=== PATIENT | female | born 1975 | race Caucasian/White ===

== ENCOUNTER 2018-09-28 08:00 | Inpatient (IN) | payer BC, OTHER ==
[2018-09-28 12:42] VITALS: BMI 38.2
[2018-09-28] MEDS ORDERED: CITRIC ACID/SODIUM CITRATE 30 ML UNIT-DOSE CUP PO ONE (13:15)
[2018-09-28] MEDS ORDERED: ELECTROLYTE-148 SOLN 1,000 ML IV SCH ×2 (13:15→14:15)
[2018-09-28] MEDS ORDERED: morphine SULFATE/PF 0.5 MG/ML (2cc Syringe - QUVA) ONE (14:03)
[2018-09-28] MEDS ORDERED: SUCCINYLCHOLINE CHLORIDE 200 MG/10 ML SYRINGE ONE (14:04)
[2018-09-28] MEDS ORDERED: PROPOFOL 20 ML ONE (14:04)
[2018-09-28] MEDS ORDERED: OXYTOCIN 20 UNITS in 0.9% NS 40 UNIT/2,000 ML INFUS.BAG IV ONE (14:09)
[2018-09-28] MEDS ORDERED: BENZOCAINE 20% 57 GM BOTTLE TP PRN (14:13)
[2018-09-28] MEDS ORDERED: IBUPROFEN 800 MG/8 ML IJ IVPB PRN (14:13)
[2018-09-28] MEDS ORDERED: METHYLERGONOVINE MALEATE 0.2 MG/1 ML AMP IM PRN (14:13)
[2018-09-28] MEDS ORDERED: WITCH HAZEL 50% (TUCKS) 40 PAD/JAR PAD TP PRN (14:13)
--- NOTE | 2018-09-28 14:24 | HP ---
Past Medical History - Primary Care Physician PCP:: David Watson - Admission Chief Complaint: 43yo P4 with prior C/S x 2 admitted with a at EGA 39w1d for repeat C/S and BTL. History of Present Illness: complicated by: AMA Morbid obesity Prior C/S x 2 Grand multiparity History Source: Patient, Medical Record Limitations to Obtaining History: No Limitations - Past Medical History ROLL PLUGGER: No: Alzheimer's, CVA, Dementia, Migraine, Multiple Sclerosis, Peripheral Neuropathy, Parkinson's, Seizure, Syncope, TIA, Vertigo, Other Cardiovascular: No: AFIB, Aneurysm, Aortic Insufficiency, Aortic Stenosis, CAD, CHF, Deep Vein Thrombosis, HTN, Hyperlipdemia, HI, Mitral Insufficiency, Mitral Stenosis, Murmur, Pulmonary Hypertension, Other Pulmonary: No: Asthma, Bronchitis, Cancer, COPD, O2 Dependent, Pneumonia, Previously Intubated, Pulmonary Embolus, Pulmonary Fibrosis, Sleep Apnea, Other Gastrointestinal: No: Ascites, Cancer, Constipation, Crohn's Disease, Diverticulitis, Diverticulosis, Esophageal Varices, Gastritis, GERD, GI Bleed, Hemorrhoids, Hiatal Hernia, Inflamatory Bowel Disease, Irritable Bowel Disease, Pancreatitis, Peptic Ulcer Disease, Ulcerative Colitis, Other Hepatobiliary: No: Cirrhosis, Cholelithiasis, Cholecystitis, Choledocholithiasis , Hepatitis A, Hepatitis B, Hepatitis C, Other Renal/: Yes: Other (Proteinuria) Reproductive: No: Ectopic , Endometriosis, Fibroids, PID, Polycystic Ovary Syndrome, Postmenopausal, Other ...: 8 ...Para: 4 ( x 2, C/S x 2) ...Term: 4 ...: 0 ...Spon : 3 ...Induced : 0 ...Multiple Gestation: 0 ...LMP: 12/30/17 ... Weeks Gestation by Dates: 39.1 ...EDC by Dates: 10/06/18 ...EDC by Sono: 10/04/18 Heme/Onc: No: Anemia, B12 Deficiency, Bleeding Disorder, Cancer, Current Chemotherapy, Current Radiation Therapy, Hemochromatosis, Hypercoaguable State, Myeloproliferative Synd, Sickle Cell Disease, Sickle Cell Trait, Thrombocytopenia, Other Infectious Disease: No: AIDS, C-Diff, Herpes Zoster, HIV, MRSA, STD's, Tuberculosis, VREF, Other Psych: No: Addictions, Anxiety, Bipolar, Depression, Panic, Psychosis, Schizophrenia, Other Musculoskeletal: No: Bursitis, Chronic low back pain, Hemiparesis, Hemiplegia, Osteoarthritis, Paraplegia, Other Rheumatology: No: Fibromyalgia, Gout, Lupus, Rheumatoid Arthritis, Sarcoidosis, Vasculitis, Other ENT: No: Allergic Rhinitis, Sinusitis, Other Endocrine: Yes: Other (Obesity) Dermatology: No: Basal Cell, Cellulitis, Eczema, Melanoma, Psoriasis, Squamous Cell, Other - Past Surgical History Past Surgical History: Yes: (x 2) Hx Myomectomy: No Hx Transabdominal Cerclage: No - Smoking History Smoking history: Former smoker Have you smoked in the past 12 months: No Aproximately how many cigarettes per day: 7 - Alcohol/Substance Use Hx Alcohol Use: No History of Substance Use: reports: None - Social History Usual Living Arrangement: Yes: With Spouse, With Child ADL: Independent History of Recent Travel: No Home Medications - Allergies Allergies/Adverse Reactions: Allergies Allergy/AdvReac Type Severity Reaction Status Date / Time No Known Drug Allergies Allergy Verified 09/28/18 12:22 - Home Medications Home Medications: Ambulatory Orders Vits96/Iron Fum/Folic [ Tablet] 1 each PO DAILY 09/28/18 Family Disease History - Family Disease History Family Disease History: CA: Sister (??ovarian), Other: Mother (HTN, COPD, Thyroid Dz.) Review of Systems - Review of Systems Constitutional: reports: No Symptoms Eyes: reports: No Symptoms HENT: reports: No Symptoms Neck: reports: No Symptoms Cardiovascular: reports: No Symptoms Respiratory: reports: No Symptoms Gastrointestinal: reports: No Symptoms Genitourinary: reports: No Symptoms Breasts: reports: No Symptoms Reported Musculoskeletal: reports: No Symptoms Integumentary: reports: No Symptoms Neurological: reports: No Symptoms Endocrine: reports: No Symptoms Hematology/Lymphatic: reports: No Symptoms Psychiatric: reports: No Symptoms Pain Intensity: 0 Physical Exam - Maternity Vital Signs: Vital Signs Temperature 98.8 F 09/28/18 12:40 Pulse Rate 99 H 09/28/18 12:40 Respiratory Rate 18 09/28/18 12:40 Blood Pressure 124/83 09/28/18 12:40 O2 Sat by Pulse Oximetry (%) Constitutional: Yes: Well Nourished, No Distress, Calm, Obese Eyes: Yes: WNL, Conjunctiva Clear HENT: Yes: WNL, Atraumatic, Normocephalic Neck: Yes: WNL, Supple, Trachea Midline Cardiovascular: Yes: WNL, Regular Rate and Rhythm Lungs: Clear to auscultation, Normal air movement Breast(s): Yes: WNL - Abdominal Exam/OB Fundal Height: 42 Number of Fetuses: Single Presentation: Vertex Contractions: No Intensity: Unaware Monitor Mode: External Heart Rate (range): 130 Heart Rate Location: Midline Category: I Accelerations: Non-Uniform Decelerations: None - Vaginal Exam/OB Vaginal Bleediing: No Speculum Exam: No Presentation: Vertex/Position - Physical Exam Musculoskeletal: Yes: WNL Extremities: Yes: WNL Edema: No Integumentary: Yes: WNL Deep Tendon Reflex Grade: Normal +2 ...Motor Strength: WNL Psychiatric: Yes: WNL, Alert, Oriented Hemorrhage Risk Assessment - Risk Factors Medium Risk Factors: Yes: Prior , uterine surgery,or multiple laparotomies, Greater than 4 previous births Risk Score: 2 Risk Level: High Risk Imaging - Results Ultrasound: Report Reviewed Assessment/Plan 43yo P4 with prior C/S x 2 admitted with a at EGA 39w1d for repeat C/ S and BTL. The decision was made to proceed with delivery by C/S. The pt requested sterilization. We discussed the risks and benefits of C/S at length, including but not limited to scarring, pain, bleeding, infection, injury to underlying organs and structures, need for additional surgery to repair/treat any problems or complications, complications/injuries, etc. The pt verbalized her understanding and requested to proceed with surgery. The pt is aware that all surgeries have risks and no guarantees can be provided. We discussed the risks and benefits of BTL vs salpingectomy. The pt prefers BTL if possible, not a salpingectomy. We discussed the possible risk reduction for ovarian ca in patients with FHx of ovarian cancer.
[2018-09-28] MEDS ORDERED: ePHEDrine SULFATE 50 MG/1 ML AMPULE ONE (14:25)
[2018-09-28] MEDS ORDERED: morphine SULFATE/PF 0.5 MG/ML (2cc Syringe - QUVA) EP ONE (14:42)
[2018-09-28] MEDS: OXYTOCIN 20 UNITS in 0.9% NS 20 UNIT/1,000 ML INFUS.BAG IV SCH (15:25)
[2018-09-28] MEDS ORDERED: ONDANSETRON 4 MG/2 ML VIAL IVPUSH PRN (15:42)
[2018-09-28] MEDS ORDERED: ACETAMINOPHEN 1000 MG/100 ML VIAL (NON FORMULARY) IVPB ONE (15:44)
[2018-09-28] MEDS ORDERED: KETOROLAC TROMETHAMINE 30 MG/1 ML VIAL ONE (15:50)
[2018-09-28] MEDS ORDERED: ACETAMINOPHEN INJECTION 100 ML IVPB ONE (15:50)
--- NOTE | 2018-09-28 16:48 | OP ---
Operative Note - Note: Operative Date: 09/28/18 Pre-Operative Diagnosis: at EGA 39w 1d with prior C/S x 2, AMA, morbid obesity, gestational proteinuria, sterilization Operation: Repeat LT C/S, Left tubal ligation, right partial salpigectomy/ fimbriactomy Findings: Normal uterus/tubes/ovaries, live baby boy in vtx presentation, no meconium in amniotic fluid, 9-9, Wt 9lb 2oz, left Fallopian tube free from adhesions, right Fallopian tube with multiple adhesion. Post-Operative Diagnosis: Same as Pre-op Surgeon: David Watson Ceo: Jim Gomez Anesthesiologist/PICTURE FRAME MAKER: Opal Burton MD Anesthesia: Spinal Specimens Removed: Placenta, fragments of left & right Fallopian tubes. Estimated Blood Loss (mls): 700 Drains & Tubes with Location: Tobar cath Drains, Volume Out (mls): 400 Blood Volume Replaced (mls): 0 Fluid Volume Replaced (mls): 2,000 Operative Report Dictated: Yes
[2018-09-29] MEDS: OXYTOCIN 20 UNITS in 0.9% NS 20 UNIT/1,000 ML INFUS.BAG IV SCH (04:12)
[2018-09-29] MEDS ORDERED: ACETAMINOPHEN 325 MG TABLET (FP) PO ONE (07:00)
--- NOTE | 2018-09-29 07:01 | PN ---
Post Progress Note - Subjective Subjective: Patient without acute complaints. Had nausea overnight, now tolerating clears. No voiding, peguero in place draining clear fluid No ambulation or flatus yet. Denies fevers or chills. Pain well controlled. Post Day: 1 Type of Delivery: Repeat C/S Vital Signs: Vital Signs Temperature 97.7 F 09/29/18 06:00 Pulse Rate 82 09/29/18 06:00 Respiratory Rate 20 09/29/18 06:00 Blood Pressure 106/66 09/29/18 06:00 O2 Sat by Pulse Oximetry (%) 98 09/28/18 17:25 Breast Exam: Yes: Soft Uterus: Yes: Fundus Firm, Fundus @ umbilicus, Fundus below umbilicus Incision: Yes: Dressing dry and intact Abdomen/GI: Yes: Abdomen soft, Abdominal Distention (mild soft), Tender (mild incisional), Tolerating PO Lochia: Yes: Rubra Lochia, amount: Moderate Extremities: Yes: Calves non-tender, Edema (+1) Activity: Ambulating Assessment/Plan 43 yo POD # 1 s/p R CD, afebrile, vital signs stable, doing well 1. Continue routine postoperative care. 2. Follow up AM CBC 3. Rh positive status, no rhogam indicated. 4. Encourage ambulation and incentive spirometer use 5. Continue oral pain medication 6. Peguero in place Will DC this afternoon. 7. Anticipate discharge home postoperative day #3 or #4
[2018-09-29 07:31] LABS: BASO % 0.6 % (0-2.0); EOS % 1.5 % (0-4.5); HEMATOCRIT 29.7 % (32.4-45.2); HEMOGLOBIN 10.4 GM/dL (10.7-15.3); LYMPH % 14.3 % (8-40); MCH 31.5 pg (25.7-33.7); MCHC 34.8 g/dl (32.0-36.0); MEAN CELL VOLUME 90.6 fl (80-96); MONO % 4.4 % (3.8-10.2); NEUT % 79.2 % (42.8-82.8); PLATELET COUNT 93 K/MM3 (134-434); RBC 3.28 M/mm3 (3.60-5.2); RDW 14.4 % (11.6-15.6); WHITE BLOOD COUNT 8.3 K/mm3 (4.0-10.0)
[2018-09-29] MEDS: PRENATAL VITAMINS W/ FOLIC ACID TABLET (FP) PO SCH (09:26)
[2018-09-29] MEDS ORDERED: OXYTOCIN 20 UNITS in 0.9% NS 20 UNIT/1,000 ML INFUS.BAG IV ONE (10:44)
[2018-09-29] MEDS: ENOXAPARIN NA (PORCINE) 40 MG/0.4 ML DISP.SYRIN SQ SCH (10:47)
--- NOTE | 2018-09-29 11:36 | PN ---
Progress Note (short form) - Note Progress Note: Anesthesiology Post-op POD#1 s/p C/S under Spinal anesthesia. Pt. is sitting up in chair, nursing babay. She feels well and states that her nausea and dizziness are resolved from yesterday. No h/a, she is able to walk without difficulty. VSS. 43 y.o. woman with stable post-operative course. Continue management as per primary team.
[2018-09-29] MEDS ORDERED: BISACODYL 10 MG SUPP.RECT RC PRN (14:13)
[2018-09-29] MEDS: IBUPROFEN 600 MG TABLET (FP) PO PRN (16:45)
[2018-09-29] MEDS ORDERED: oxyCODONE HCL 5 MG TABLET PO PRN (22:28)
[2018-09-30] MEDS: IBUPROFEN 600 MG TABLET (FP) PO PRN ×3 (01:29→22:00)
[2018-09-30] MEDS: SIMETHICONE 80 MG TAB.CHEW (FP) PO PRN ×2 (01:29→16:09)
--- NOTE | 2018-09-30 06:06 | PN ---
Progress Note (short form) - Note Progress Note: pod 2 s/p c/s , doing well, ambulating , passing gas , tolerate diet CBC, BMP 09/29/18 07:03 Last Vital Signs Temp Pulse Resp BP Pulse Ox 98.7 F 95 H 18 128/78 98 09/29/18 22:00 09/29/18 22:00 09/29/18 22:00 09/29/18 22:00 09/28/18 17:25 abdomen soft, no distension, no cva incision dry, clean no calf tenderness no excess vaginal bleeding plan ambulate , cbc in am
[2018-09-30] MEDS: ENOXAPARIN NA (PORCINE) 40 MG/0.4 ML DISP.SYRIN SQ SCH (09:19)
[2018-09-30] MEDS: PRENATAL VITAMINS W/ FOLIC ACID TABLET (FP) PO SCH (09:19)
[2018-10-01 07:45] LABS: BASO % 0.5 % (0-2.0); EOS % 1.7 % (0-4.5); HEMATOCRIT 28.2 % (32.4-45.2); HEMOGLOBIN 9.7 GM/dL (10.7-15.3); LYMPH % 17.9 % (8-40); MCH 31.3 pg (25.7-33.7); MCHC 34.6 g/dl (32.0-36.0); MEAN CELL VOLUME 90.6 fl (80-96); MEAN PLT VOLUME 9.8 fl (7.5-11.1); NEUT % 74.9 % (42.8-82.8); PLATELET COUNT 118 K/MM3 (134-434); RBC 3.11 M/mm3 (3.60-5.2); RDW 14.6 % (11.6-15.6); WHITE BLOOD COUNT 8.5 K/mm3 (4.0-10.0)
[2018-10-01] MEDS: IBUPROFEN 600 MG TABLET (FP) PO PRN (08:39)
[2018-10-01] MEDS: SIMETHICONE 80 MG TAB.CHEW (FP) PO PRN (08:39)
--- NOTE | 2018-10-01 10:06 | DS ---
Physical Exam-ENAMEL BUFFER Vital Signs: Vital Signs Temperature 98.2 F 09/30/18 22:00 Pulse Rate 86 09/30/18 22:00 Respiratory Rate 18 09/30/18 22:00 Blood Pressure 126/81 09/30/18 22:00 O2 Sat by Pulse Oximetry (%) 98 09/28/18 17:25 Constitutional: Yes: Well Nourished, No Distress, Calm Eyes: Yes: WNL, Conjunctiva Clear, EOM Intact HENT: Yes: WNL, Atraumatic, Normocephalic Neck: Yes: WNL, Supple, Trachea Midline Cardiovascular: Yes: WNL, Regular Rate and Rhythm Respiratory: Yes: WNL, Regular, CTA Bilaterally Gastrointestinal: Yes: WNL ...Rectal Exam: Yes: WNL Renal/: Yes: WNL ....Post : Yes: Uterus firm, Uterus non-tender, Slight lochia rubra Breast(s): Yes: WNL Musculoskeletal: Yes: WNL Extremities: Yes: WNL Edema: Yes Edema: LLE: Trace, RLE: Trace Integumentary: Yes: WNL Wound/Incision: Yes: Clean/Dry, Well Approximated, Sutures Intact Neurological: Yes: WNL, Alert, Oriented ...Motor Strength: WNL Psychiatric: Yes: WNL, Alert, Oriented Labs: CBC, BMP 10/01/18 07:15 Delivery - Delivery Section: Repeat Type of Anesthesia: Spinal Episiotomy/Laceration: None EBL (cc): 700 Delivery, Single - Stages of Labor Date of Delivery: 09/28/18 Time of Delivery: 14:50 Time Placenta Delivered: 14:51 Placenta: Yes: Expressed - Condition of Infant Sales Clerk Food/Grey Washer Present: Yes Name: William Villarreal Infant Gender: Male Weight: 9 lb 2 oz Position: Left, OT Total Hours ROM (Hrs/Mins): 0/2 - 1 Minute Total Score: 9 5 Minutes Total Score: 9 - [place] Feeding Plan Initial Plan: Elected not to breastfeed exclusively throughout hospitalization Discharge Summary Reason For Visit: REPEAT Procedures: Principal: repeat LST c/s Condition: Good - Instructions Diet, Activity, Other Instructions: regular diet, follow up office 1 week, if fever, heavy vaginal bleeding, sever pain call md Referrals: David Watson MD [Staff Physician] - Disposition: HOME - Home Medications Comprehensive Discharge Medication List: Ambulatory Orders Vits96/Iron Fum/Folic [ Tablet] 1 each PO DAILY 09/28/18 Ibuprofen [Motrin -] 600 mg PO QID #28 tablet 10/01/18
[2018-10-01] MEDS: ENOXAPARIN NA (PORCINE) 40 MG/0.4 ML DISP.SYRIN SQ SCH (10:31)
[2018-10-01] MEDS: PRENATAL VITAMINS W/ FOLIC ACID TABLET (FP) PO SCH (10:33)
[2018-10-01 13:25] VITALS: BP 129/80; PULSE 90; TEMP 99.1
--- NOTE | 2018-10-05 17:05 | PATH ---
Surgical Pathology Report Patient Name: PAZ MONTIEL [facility]. Rec. #: [id number] /Age/Gender: 1975 (Age: 43) / F Account: [id number] Location: [facility] OBS/VP SITE Taken: 09/28/2018 Received: 09/29/2018 Reported: 10/05/2018 Physicians: David Watson M.D. Specimen(s) Received A: PLACENTA B: LEFT FALLOPIAN TUBE C: RIGHT FALLOPIAN TUBE Clinical History for repeat and BTL 05/31, 07/04, SPAB x3 Advanced maternal age, gestational proteinuria Final Diagnosis A. PLACENTA: THIRD TRIMESTER PLACENTA. TRIVASCULAR CORD. MEMBRANES WITH NO DIAGNOSTIC ABNORMALITIES. B. PORTION OF LEFT FALLOPIAN TUBE: COMPLETE CROSS SECTION OF THE FALLOPIAN TUBE LUMEN IDENTIFIED. C. PORTION OF RIGHT FALLOPIAN TUBE: COMPLETE CROSS SECTION OF THE FALLOPIAN TUBE LUMEN IDENTIFIED. Electronically Signed Dominique Macias M.D. Gross Description A. The specimen is received fresh labeled placenta and is a 510 gram, 17.0 x 15.0 x 4.0 cm. placenta with attached membranes and umbilical cord. The attached membranes are castellanos, translucent with focal opacities and insert marginally. The umbilical cord measures 36 cm. in length and averages 1.2 cm. in diameter. The cord inserts eccentrically, 3 cm. to the nearest margin. No true knots or strictures are identified. Cut surface of the umbilical cord reveals 3 vessels. The surface is vazquez blue with moderate fibrin deposition and appropriate caliber vessels. The maternal surface is red-brown with focal defects. Sectioning reveals red-brown, spongy parenchyma. No lesions are identified. Special Investigation Unit Investigator sections are submitted in three cassettes as follows: 1- membrane rolls and umbilical cord; 2-3- full thickness sections of placenta. B. Received in formalin labeled "portion of left fallopian tube," is a 0.6 cm in length portion of fallopian tube. No fimbria are present. The outer surface is castellanos-finley and smooth. Sectioning reveals unremarkable lumen. Special Investigation Unit Investigator sections are submitted in one cassette. C. Received in formalin labeled "portion of right fallopian tube," are 2 portions of fallopian tube measuring 1.5 and 2.0 cm in length. The longer portion is fimbriated. The outer surfaces are castellanos-finley and smooth. Sectioning reveals an unremarkable lumen. Special Investigation Unit Investigator sections are submitted in 2 cassettes as follows: 1-fimbria; 2-cross sections of fallopian tube. 10/04/2018 [facility]10/04/2018
--- NOTE | 2018-10-07 06:32 | OP ---
DATE OF OPERATION: 09/28/2018 PREOPERATIVE DIAGNOSES: at the estimated gestational age of 39 weeks and 1 day, previous section x2, advanced maternal age, gestational proteinuria, morbid obesity, sterilization. POSTOPERATIVE DIAGNOSES: at the estimated gestational age of 39 weeks and 1 day, previous section x2, advanced maternal age, gestational proteinuria, morbid obesity, sterilization. PROCEDURE: Repeat low transverse section, left tubal ligation, right fallopian tube partial salpingectomy and fimbriectomy. SURGEON: David Watson MD PHYSICIANS AND SURGEONS: Jim Gomez MD ANESTHESIOLOGIST: SUSY Gorman- ANESTHESIA: Spinal. INTRAVENOUS FLUIDS: 2000 mL. URINE OUTPUT: 400 mL. ESTIMATED BLOOD LOSS: 700 mL. PATHOLOGY: Placenta and fragments of left and right fallopian tubes. COMPLICATIONS: None. FINDINGS: Live baby boy in vertex presentation. No meconium in amniotic fluid. Apgars 9 and 9. Baby's weight 9 pounds and 2 ounces. Normal uterus, fallopian tubes and ovaries. The left fallopian tube was noted to be free from adhesions. The right fallopian tube had multiple dense adhesions. PROCEDURE: The patient was met preoperatively. Risks, benefits and alternatives of surgery were discussed at length. The risks of surgery were reviewed. The consent form was discussed. The patient verbalized her understanding and the consent form was signed. The patient then requested to proceed with the operation. The patient was brought to the OR with the IV running. She was placed on the surgical table in the sitting position. The spinal anesthesia was achieved without difficulty. The patient was then placed in a supine position with a leftward tilt. A Tobar catheter was inserted and left to drain to gravity. The patient was then prepped and draped in the usual sterile fashion. A timeout procedure was conducted as per standard protocol. The surgeons then proceeded with the operation. A Pfannenstiel skin incision was made along the prior scar. The incision was taken down to the level of fascia. The fascia was incised in the midline and the incision was extended bilaterally using Garner scissors. The fascia was dissected away from the rectus muscles superiorly and inferiorly. The rectus muscles were in the midline using sharp and blunt dissection. The peritoneum was identified and entered sharply. The peritoneal incision was then extended superiorly and inferiorly. The bladder peritoneum was dissected away from the lower uterine segment using sharp and blunt dissection. The bladder was reflected downwards using a [place] retractor. The uterus was incised transversely in the lower uterine segment. The uterine incision was extended bilaterally using bandage scissors. The amniotic sac was ruptured and the baby was delivered from vertex presentation without complications. The umbilical cord was clamped and cut. The baby was handed to the awaiting creative technologist. The placenta was then extracted manually without complications. The uterus was cleared of all clots and debris with moist laparotomy laps. The uterine incision was then repaired using a 0 Biosyn suture with a running locking stitch. The uterine incision was imbricated using a 0 Biosyn suture with good approximation and hemostasis. The left fallopian tube was then identified and followed to the fimbriated end. The midportion of the left fallopian tube was picked up with Radames clamp. Approximately 3 cm of the left fallopian tube in the midportion was suture ligated and excised with good hemostasis. The fragment was sent to Pathology for evaluation. The right fallopian tube was identified and followed to the fimbriated end. The right fallopian tube was noted to be densely adherent to the broad ligament and the uterus. The adhesions were lysed and the decision was made to proceed with the partial salpingectomy and fimbriectomy. Approximately a 5-cm portion of the right fallopian tube and the fimbriae were suture ligated and excised with good hemostasis. The operative site was then irrigated with copious amounts of normal saline. Once the saline was aspirated good hemostasis was confirmed. The parietal peritoneum was then closed using a 2-0 chromic suture. The rectus muscles were approximated in the midline using several interrupted 2-0 chromic sutures. The fascia was closed using a 0 Vicryl suture with a running stitch. The subcutaneous adipose tissues were approximated in several layers using multiple interrupted 2-0 chromic sutures. The skin was then closed using a 4-0 Vicryl suture with a subcutaneous stitch. Sponge, lap, needle counts and instrument counts were correct. The patient was transferred to recovery room in stable condition and awake. Vivek [id number]
== END 2018-10-01 12:40 | disposition home or self-care (01) | DRG 784 ==
LOC: JLDR 12:10 → J3W 17:45
PROVIDERS: ADMIT Obstetrics & Gynecology; ATTEND Obstetrics & Gynecology
PROC: 10D00Z1 Extraction of Products of Conception, Low, Open Approach (ICD-10-PCS; principal; 2018-09-28)
PROC: 0UL60ZZ Occlusion of Left Fallopian Tube, Open Approach (ICD-10-PCS; 2018-09-28)
PROC: 0UB50ZZ Excision of Right Fallopian Tube, Open Approach (ICD-10-PCS; 2018-09-28)
PROC: 0UN70ZZ Release Bilateral Fallopian Tubes, Open Approach (ICD-10-PCS; 2018-09-28)
DX: O34.211 Maternal care for low transverse scar from previous cesarean delivery (principal); O12.13 Gestational proteinuria, third trimester; O99.214 Obesity complicating childbirth; E66.01 Morbid (severe) obesity due to excess calories; O12.14 Gestational proteinuria, complicating childbirth; Z3A.39 39 weeks gestation of pregnancy; Z37.0 Single live birth; O99.89 Other specified diseases and conditions complicating pregnancy, childbirth and the puerperium; N73.6 Female pelvic peritoneal adhesions (postinfective)
CPT/HCPCS: 36415; 85025; 88302-TC; 88307-TC; J0131

== ENCOUNTER 2021-05-08 04:35 | Day surgery (SDC) | payer BC, OTHER ==
[2021-05-06 17:19] VITALS: BMI 25.7
[2021-05-08] MEDS ORDERED: SODIUM CHLORIDE 500 ML IV SCH (10:40)
[2021-05-08] MEDS ORDERED: MIDAZOLAM HCL 2 MG/2 ML SINGLE DOSE VIAL IVPUSH ONE ×2 (10:45→10:55)
[2021-05-08] MEDS ORDERED: ACETAMINOPHEN INJECTION 100 ML IVPB ONE (11:43)
[2021-05-08] MEDS ORDERED: ACETAMINOPHEN 1000 MG/100 ML BAG IVPB ONE ×2 (11:45)
[2021-05-08 12:18] VITALS: TEMP 98
[2021-05-08 15:58] VITALS: BP 101/62; PULSE 81
== END 2021-05-08 15:30 | disposition home or self-care (01) ==
LOC: JRADIR 04:35
PROVIDERS: ATTEND Internal Medicine Nephrology
PROC: 0TB03ZX Excision of Right Kidney, Percutaneous Approach, Diagnostic (ICD-10-PCS; principal; 2021-05-08)
DX: N18.9 Chronic kidney disease, unspecified (principal)
CPT/HCPCS: 50200; 76775-TC; 81025; 88300-TC

== ENCOUNTER 2022-08-08 01:07 | Emergency (ER) | payer BC, OTHER ==
[2022-08-08 01:14] VITALS: BP 152/88; PULSE 98; RESP 18; TEMP 98.9; BMI 24.1
[2022-08-08] MEDS ORDERED: METHOCARBAMOL 500 MG TABLET PO ONE (01:36)
[2022-08-08] MEDS ORDERED: METHOCARBAMOL 500 MG TABLET ONE (01:38)
[2022-08-08] MEDS ORDERED: LIDOCAINE 5% TOPICAL PATCH TP ONE (02:07)
[2022-08-08] MEDS ORDERED: LIDOCAINE 5% TOPICAL PATCH ONE (02:09)
[2022-08-08] MEDS ORDERED: oxyCODONE HCL 5 MG TABLET PO ONE (02:35)
[2022-08-08] MEDS ORDERED: oxyCODONE HCL 5 MG TABLET ONE (02:39)
[2022-08-08] MEDS ORDERED: LIDOCAINE PATCH REMOVAL MC SCH (22:00)
== END 2022-08-08 02:42 | disposition home or self-care (01) ==
LOC: JER 01:07
DX: S49.91XA Unspecified injury of right shoulder and upper arm, initial encounter (principal); M25.511 Pain in right shoulder; X50.0XXA Overexertion from strenuous movement or load, initial encounter; Y93.F2 Activity, caregiving, lifting; Y93.9 Activity, unspecified
CPT/HCPCS: 73030-TC-RT-FY; 99283-25